=== PATIENT | male | born 1930 | race Caucasian/White ===

== ENCOUNTER 2017-09-19 12:56 | Emergency (ER) | payer SELFPAY ==
[~2017-09-19] VITALS: Ht 175.3 cm; Wt 84.0 kg
[2017-09-19 12:57] VITALS: PULSE 0; RESP 0
[2017-09-19] MEDS ORDERED: CALCIUM CHLORIDE 10% SOLN 1 GRAM/10 ML SYR IV ONE (12:57)
[2017-09-19] MEDS ORDERED: EPINEPHrine HCL (1:10,000) 1 MG/10 ML SYRINGE IV ONE (12:57)
[2017-09-19 13:00] VITALS: O2SAT 80
--- NOTE | 2017-09-19 14:49 | PD ---
HPI Chief Complaint: Code Blue Time Seen by Provider: 13:51 Travel History International Travel<30 days: No Contact w/Intl Traveler<30days: No Traveled to known affect area: No History of Present Illness HPI This is an 87-year-old male who presents to the emergency department with a cardiac arrest. He evidently was walking around [facility] and had a witnessed arrest where he slumped over to the ground at stopped breathing. When EMS arrived they found him to be pulseless. They initiated CPR. They felt like they got pulses back twice in between 3 doses of epinephrine but he immediately lost them again. End-tidal CO2 ranged anywhere from the low tens to 40. Patient has no known medical history per [facility]. He had a normal blood sugar in route. He was also given a dose of bicarbonate. PFSH Past Medical History Alzheimer's Disease: Yes Diabetes: Yes Diminished Hearing: No Psychiatric: Yes (PARANOID SCHIZOPHRENIA) Schizophrenia: Yes Past Surgical History Tonsillectomy: Yes (t&a) Social History Alcohol Use: No Tobacco Use: No Substance Use: No Allergies-Medications (Allergen,Severity, Reaction): Coded Allergies: No Known Allergies (Verified , 11/08/14) Reported Meds & Prescriptions Reported Meds & Active Scripts Active No Active Prescriptions or Reported Medications Review of Systems ROS Limitations: Unresponsive Physical Exam Narrative GENERAL: Frail, pale elderly male SKIN: Dry with skin tenting. HEAD: Atraumatic. Normocephalic. EYES: Pupils equal and round. No injection or drainage. ENT: Dry mucous membranes. NECK: Trachea midline. CARDIOVASCULAR: Pulseless RESPIRATORY: Coarse breath sounds bilaterally, no sounds over the stomach GASTROINTESTINAL: Abdomen soft, non-tender, nondistended. MUSCULOSKELETAL: No obvious deformities. NEUROLOGICAL: Unresponsive Data Data Last Documented VS Vital Signs Date Time Temp Pulse Resp B/P (MAP) Pulse Ox O2 Delivery O2 Flow Rate FiO2 09/19/17 13:00 80 09/19/17 13:00 15.00 09/19/17 12:57 0 0 MDM Medical Decision Making Medical Screen Exam Complete: Yes Emergency Medical Condition: Yes Differential Diagnosis Intracranial hemorrhage, myocardial infarction, arrhythmia, pulmonary embolism, pneumonia, stroke Narrative Course This is an 87-year-old male who presents to the emergency department having [facility] cardiac [facility]. He was found to be in pulseless electrical activity on arrival in the emergency department. He was given an additional dose of epinephrine. ENT Tube was confirmed by end tidal CO2 and auscultation. Patient was given a dose of calcium. He failed to have return of spontaneous circulation and his end-tidal CO2 was very poor under 10 throughout his ER stay. This and his age suggested a poor prognosis to me. Further resuscitative efforts were deemed futile. Diagnosis Primary Impression: Cardiac arrest Scripts No Active Prescriptions or Reported Meds Disposition: 20 Condition: Licha Hollins MD Sep 19, 2017 14:48
== END 2017-09-19 13:10 | disposition expired ==
LOC: NEPC 12:56
DX: I46.9 Cardiac arrest, cause unspecified (principal); G30.9 Alzheimer's disease, unspecified; F02.80 Dementia in other diseases classified elsewhere, unspecified severity, without behavioral disturbance, psychotic disturbance, mood disturbance, and anxiety; E11.9 Type 2 diabetes mellitus without complications; F20.0 Paranoid schizophrenia
CPT/HCPCS: 92950; 99285; J0171